=== PATIENT | female | born 1995 | race Caucasian/White ===

== ENCOUNTER 2017-08-10 00:17 | Emergency (ER) | payer SELFPAY ==
[~2017-08-10] VITALS: Ht 165.1 cm; Wt 60.0 kg
[2017-08-10] MEDS ORDERED: ONDANSETRON HCL 4 MG/2 ML VIAL ONE (00:19)
[2017-08-10] MEDS ORDERED: SODIUM CHLOR 0.9% 250 ML INJ 500 ML ONE (00:19)
[2017-08-10 00:23] VITALS: BP 116/69; PULSE 69; RESP 18; TEMP 98; O2SAT 100
[2017-08-10 00:25] VITALS: RESP 16; O2SAT 100
--- NOTE | 2017-08-10 00:32 | PD ---
HPI Chief Complaint: Alcohol/Drug Intoxication Time Seen by Provider: 00:20 Travel History International Travel<30 days: No Contact w/Intl Traveler<30days: No Traveled to known affect area: No History of Present Illness HPI The patient is a 22 year old female who presents to the [facility] emergency department with a history of being brought in by ambulance services related to altered mentation. The patient is found outside of a local bar intoxicated. The patient's boyfriend reports that they have been drinking alcohol this evening. He denied to ambulance services or using any other substances. No other history is able to be obtained from this patient as she arrives with a decreased level of consciousness. According to ambulance services she was spontaneously moving all of her extremities and is responsive to painful stimulation, otherwise she is sleeping soundly. Ambulance services is unsure whether the patient had any vomiting prior to arrival. The patient's blood sugar was noted prior to arrival to be 90. PFSH Past Medical History Narrative Medical The patient's past medical history is not able to be obtained. Medical History: Unable to Obtain Tetanus Vaccination: Unknown ?: Unknown Past Surgical History Narrative Surgical The patient's surgical history is unable to be obtained. Surgical History: Unable to Obtain Social History Alcohol Use: Yes Tobacco Use: No Substance Use: No Allergies-Medications (Allergen,Severity, Reaction): Coded Allergies: No Known Allergies (Verified Allergy, Severe, 08/10/17) Reported Meds & Prescriptions Reported Meds & Active Scripts Active No Active Prescriptions or Reported Medications Narrative Medication Patient's current medications are unable to be obtained Review of Systems ROS Limitations: Intoxication, Altered Mental Status Neurologic: Positive: Change in Mentation Physical Exam Narrative General: The patient is a well-developed well-nourished female in no acute distress. Head and Neck exam: Head is normocephalic atraumatic. Eyes: Extraocular motion testing is unable to be accomplished in this patient who is not following commands. The patient's pupils are 4 mm, equal bilaterally and reactive to light. Nose: Midline septum with pink mucous membranes Mouth: Dentition unremarkable. Moist mucus membranes. Posterior oropharynx is not able to be fully visualized as the patient is clenching her mouth shut. No tonsillar hypertrophy. Uvula midline. Airway patent. Neck: No palpable lymphadenopathy. No nuchal rigidity. No thyromegaly. Cardiovascular: Regular rate and rhythm without murmurs, gallops, or rubs. Lungs: Clear to auscultation bilaterally. No wheezes, rhonchi, or rales. Abdomen: Soft, without tenderness to palpation in all 4 quadrants of the abdomen. No guarding, rebound, or rigidity. normal bowel sounds are audible. No tenderness on palpation of McBurney's point Extremities: No clubbing, cyanosis, or edema. 2+ pulses in all 4 extremities. Neurologic Exam: The patient is uncooperative with formal neurologic testing, however he has no obvious facial asymmetry. The patient spontaneously moves all extremities and is responsive to painful stimulation. She is not responsive to verbal stimulation. Skin Exam: No rash noted. Intact skin that is warm and dry. Data Data Last Documented VS Vital Signs Date Time Temp Pulse Resp B/P (MAP) Pulse Ox O2 Delivery O2 Flow Rate FiO2 08/10/17 00:25 16 100 Nasal Cannula 2.00 08/10/17 00:23 98.0 69 116/69 (85) Orders Orders Ondansetron Inj (Zofran Inj) (08/10/17:19) Sodium Chlor 0.9% 250 Ml Inj (Ns 250 Ml (08/10/17:19) Complete Blood Count With Diff (08/10/17:20) Comprehensive Metabolic Panel (08/10/17:) Prothrombin Time / Inr (Pt) (08/10/17:20) Act Partial Throm Time (Ptt) (08/10/17:20) Urinalysis - C+S If Indicated (08/10/17:20) Cath For Specimen (08/10/17:20) Magnesium (Mg) (08/10/17:20) Chest, Single Ap (08/10/17:20) Ct Brain W/O Iv Contrast(Rout) (08/10/17:20) Iv Access Insert/Monitor (08/10/17:20) Ecg Monitoring (08/10/17:20) Oximetry (08/10/17:20) Ed Urine Pregnancytest Poc (08/10/17 00:20) Drug Screen, Random Urine (08/10/17 00:20) Alcohol (Ethanol) (08/10/17:20) Labs Laboratory Tests Test 08/10/17 00:30 White Blood Count 9.9 TH/MM3 Red Blood Count 4.29 MIL/MM3 Hemoglobin 13.2 GM/DL Hematocrit 38.7 % Mean Corpuscular Volume 90.2 FL Mean Corpuscular Hemoglobin 30.7 PG Mean Corpuscular Hemoglobin Concent 34.0 % Red Cell Distribution Width 12.9 % Platelet Count 305 TH/MM3 Mean Platelet Volume 7.1 FL Neutrophils (%) (Auto) 48.0 % Lymphocytes (%) (Auto) 42.3 % Monocytes (%) (Auto) 7.1 % Eosinophils (%) (Auto) 1.8 % Basophils (%) (Auto) 0.8 % Neutrophils # (Auto) 4.8 TH/MM3 Lymphocytes # (Auto) 4.2 TH/MM3 Monocytes # (Auto) 0.7 TH/MM3 Eosinophils # (Auto) 0.2 TH/MM3 Basophils # (Auto) 0.1 TH/MM3 CBC Comment DIFF FINAL Differential Comment Prothrombin Time 10.1 SEC Prothromb Time International Ratio 1.0 RATIO Activated Partial Thromboplast Time 28.9 SEC Blood Urea Nitrogen 10 MG/DL Creatinine 0.70 MG/DL Random Glucose 99 MG/DL Total Protein 7.3 GM/DL Albumin 4.0 GM/DL Calcium Level 8.2 MG/DL Magnesium Level 2.3 MG/DL Alkaline Phosphatase 78 U/L Aspartate Amino Transf (AST/SGOT) 17 U/L Alanine Aminotransferase (ALT/SGPT) 27 U/L Total Bilirubin 0.3 MG/DL Sodium Level 141 MEQ/L Potassium Level 3.2 MEQ/L Chloride Level 105 MEQ/L Carbon Dioxide Level 25.7 MEQ/L Anion Gap 10 MEQ/L Estimat Glomerular Filtration Rate 105 ML/MIN Ethyl Alcohol Level 480 MG/DL [facility] Medical Decision Making Medical Screen Exam Complete: Yes Emergency Medical Condition: Yes Medical Record Reviewed: Yes Interpretation(s) Last Impressions Head CT 08/10/1719 Signed Impressions: Service Date/Time: Thursday, August 10, 2017 02:44 - CONCLUSION: 1. Negative noncontrast CT brain. Jason Jenkins MD Chest X-Ray 08/10/1719 Signed Impressions: Service Date/Time: Thursday, August 10, 2017 00:41 - CONCLUSION: Lungs are clear. Jason Jenkins MD Differential Diagnosis Altered mentation related to acute alcohol intoxication, versus other substance intoxication, versus intracranial injury Narrative Course During the course of the patient's emergency department visit, the patient's history, examination, and differential diagnosis were reviewed with the patient. The patient was placed on a groundwater monitoring technician with oximetry and frequent blood pressure monitoring. The patient had IV access obtained and blood work sent for analysis. The patient was initially provided normal saline 500 mL bolus 1, Zofran 4 mg IV. The patient's laboratory studies were reviewed and remarkable for a CBC that is within normal limits, CMP is remarkable for potassium of 3.2, calcium 8.2. PT 10.1, PTT 28.9, alcohol level 480. Radiology studies were reviewed and remarkable for a chest x-ray that shows no acute cardiopulmonary disease, CT scan of the brain shows no acute abnormality. The patient will be observed in the emergency department for improvement in her mentation as her alcohol level decreases. The patient has required supplemental oxygen by nasal cannula. Once the patient is more awake and alert , the patient will be discharged home with family, however if no family is available to take the patient home, the patient will be observed until her alcohol level is less than 80. Diagnosis Primary Impression: Alcohol intoxication Qualified Codes: F10.929 - Alcohol use, unspecified with intoxication, unspecified Additional Impression: Altered mental status Qualified Codes: R40.0 - Somnolence Referrals: [facility] as needed Patient Instructions: Alcohol Intoxication (ED), General Instructions Additional Instructions: Please avoid heavy alcohol intake in the future Med/Other Pt SpecificInfo: No Change to Meds Scripts No Active Prescriptions or Reported Meds Disposition: 01 DISCHARGE HOME Condition: Stable Padma Campos MD Aug 10, 2017 00:32
[2017-08-10 00:36] LABS: AUTOMATED NEUTROPHIL # 4.8 TH/MM3 (1.8-7.7); BASOPHIL # 0.1 TH/MM3 (0-0.2); BASOPHIL % 0.8 % (0.0-2.0); EOSINOPHIL # 0.2 TH/MM3 (0-0.4); EOSINOPHIL % 1.8 % (0.0-4.0); HEMATOCRIT 38.7 % (35.0-46.0); HEMOGLOBIN 13.2 GM/DL (11.6-15.3); LYMPH % 42.3 % (9.0-44.0); LYMPHOCYTE # 4.2 TH/MM3 (1.0-4.8); MEAN CELL VOLUME 90.2 FL (80.0-100.0); MEAN CORPUSCULAR HEMOGLOBIN 30.7 PG (27.0-34.0); MEAN PLATELET VOLUME 7.1 FL (7.0-11.0); MONO % 7.1 % (0.0-8.0); MONOCYTE # 0.7 TH/MM3 (0-0.9); PLATELET COUNT 305 TH/MM3 (150-450); RED BLOOD COUNT 4.29 MIL/MM3 (4.00-5.30); RED CELL DISTRIBUTION WIDTH 12.9 % (11.6-17.2); WHITE BLOOD COUNT 9.9 TH/MM3 (4.0-11.0)
[2017-08-10 00:50] LABS: PROTHROMBIN TIME - PATIENT 10.1 SEC (9.8-11.6)
--- NOTE | 2017-08-10 00:52 | RADRPT ---
EXAM DATE/TIME: 08/10/2017 00:41 [facility] COMPARISON: No previous studies available for comparison. INDICATIONS : ETOH, cough. MEDICAL HISTORY : None. SURGICAL HISTORY : None. ENCOUNTER: Initial ACUITY: 1 day PAIN SCORE: 0/10 LOCATION: Bilateral chest FINDINGS: Patient rotation towards the left. There is blurring of the images due to patient motion. A single view of the chest demonstrates the lungs to be symmetrically aerated without evidence of mass, infilt rate or effusion. The cardiomediastinal contours are unremarkable. Osseous structures are intact. CONCLUSION: Lungs are clear. Jason Jenkins MD on August 10, 2017 at 0:50 Board Certified Radiologist. This report was verified electronically.
[2017-08-10 01:01] LABS: ALT (GPT) 27 U/L (10-53); AST (GOT) 17 U/L (15-37); BICARBONATE 25.7 MEQ/L (21.0-32.0); BLOOD UREA NITROGEN 10 MG/DL (7-18); CALCIUM 8.2 MG/DL (8.5-10.1); CHLORIDE 105 MEQ/L (98-107); GLOMERULAR FILTRATION RATE 105 ML/MIN (>89); GLUCOSE,RANDOM 99 MG/DL (74-106); MAGNESIUM 2.3 MG/DL (1.5-2.5); SODIUM (NA) 141 MEQ/L (136-145)
[2017-08-10 01:03] LABS: ALKALINE PHOSPHATASE 78 U/L (45-117); TOTAL BILIRUBIN ADULT 0.3 MG/DL (0.2-1.0); TOTAL PROTEIN 7.3 GM/DL (6.4-8.2)
--- NOTE | 2017-08-10 03:17 | RADRPT ---
EXAM DATE/TIME: 08/10/2017 02:44 [facility] COMPARISON: No previous studies available for comparison. INDICATIONS : Altered mental status. ETOH RADIATION DOSE: 32.89 CTDIvol (mGy) ; Patient motion MEDICAL HISTORY : None SURGICAL HISTORY : None. ENCOUNTER: Initial ACUITY: 1 day PAIN SCALE: 0/10 LOCATION: cranial TECHNIQUE: Multiple contiguous axial images were obtained of the head. Using automated exposure control and adj ustment of the mA and/or kV according to patient size, radiation dose was kept as low as reasonably a chievable to obtain optimal diagnostic quality images. DICOM format image data is available electro nically for review and comparison. FINDINGS: CEREBRUM: The ventricles are normal for age. No evidence of midline shift, mass lesion, hemorrhage or acute in farction. No extra-axial fluid collections are seen. POSTERIOR FOSSA: The cerebellum and brainstem are intact. The 4th ventricle is midline. The cerebellopontine angle i s unremarkable. EXTRACRANIAL: The visualized portion of the orbits is intact. SKULL: The calvaria is intact. No evidence of skull fracture. CONCLUSION: 1. Negative noncontrast CT brain. Jason Jenkins MD on August 10, 2017 at 3:15 Board Certified Radiologist. This report was verified electronically.
[2017-08-10 04:13] VITALS: BP 108/65; PULSE 68; RESP 18; O2SAT 100
== END 2017-08-10 05:24 | disposition home or self-care (01) ==
LOC: NEPC 00:17 → NEDAMB 05:24
DX: F10.929 Alcohol use, unspecified with intoxication, unspecified (principal); Y90.8 Blood alcohol level of 240 mg/100 ml or more
CPT/HCPCS: 70450; 71045; 80053; 80307; 83735; 84703; 85025; 85610; 85730; 99285; J2405; J7050